=== PATIENT | female | born 1975 | race Caucasian/White ===

== ENCOUNTER 2019-04-01 10:42 | Emergency (ER) | payer SELFPAY ==
[~2019-04-01] VITALS: Ht 162.6 cm; Wt 91.6 kg
[2019-04-01] MEDS ORDERED: MECLIZINE HCL 12.5 MG TABLET. PO ONE (11:00)
[2019-04-01] MEDS ORDERED: IV NORMAL SALINE 1000ML BAG 1,000 ML IV ONE (11:00)
[2019-04-01 11:05] LABS: BASO # 0.1 x10^3/uL (0.0-0.2); BASO % 1 % (0-3); EOS # 0.2 x10^3/uL (0.0-0.7); EOS % 1 % (0-3); HEMATOCRIT 44.5 % (36.0-47.0); HEMOGLOBIN 15.6 g/dL (12.0-15.5); LYMPH # 3.6 x10^3/uL (1.0-4.8); LYMPH % 33 % (24-48); MEAN CORPUSCULAR HEMOGLOBIN 32 pg (25-35); MEAN CORPUSCULAR HGB CONC 35 g/dL (31-37); MEAN CORPUSCULAR VOLUME 91 fL (79-100); MONO # 0.7 x10^3/uL (0.0-1.1); MONO % 6 % (0-9); NEUT # 6.5 x10^3/uL (1.8-7.7); NEUT % 59 % (31-73); PLATELET COUNT 227 x10^3/uL (140-400); RED CELL DISTRIBUTION WIDTH 12.9 % (11.5-14.5)
--- NOTE | 2019-04-01 11:16 | RAD ---
PORTABLE CHEST 1V History: Dizziness for 2 weeks, palpitations Comparison: None. Findings: Single view of the chest is submitted. There is no infiltrate, pneumothorax, or effusion. The pericardial cardiac silhouette is within normal limits in size. There is likely emphysema. There is mild interstitial opacity of uncertain chronicity. Impression: 1. There is likely emphysema. There is mild interstitial opacity of uncertain chronicity. Electronically signed by: Milo Baker MD (04/01/2019 11:13 AM) [id number]
[2019-04-01 11:23] LABS: BARBITURATES NEG (NEG); BENZODIAZEPINES NEG (NEG); CANNABINOIDS NEG (NEG); COCAINE NEG (NEG); METHADONE NEG (NEG); OPIATES NEG (NEG); PHENCYCLIDINE NEG (NEG)
[2019-04-01 11:26] LABS: AMPHETAMINE/METHAMPHETAMINE NEG (NEG)
[2019-04-01 11:27] LABS: CALCIUM 9.2 mg/dL (8.5-10.1); CREATININE 0.7 mg/dL (0.6-1.0); GFR 91.3; POTASSIUM 4.1 mmol/L (3.5-5.1)
[2019-04-01 11:33] LABS: ALBUMIN 3.9 g/dL (3.4-5.0); MAGNESIUM 1.9 mg/dL (1.8-2.4); TOTAL BILIRUBIN 0.1 mg/dL (0.2-1.0); TOTAL PROTEIN 7.9 g/dL (6.4-8.2)
--- NOTE | 2019-04-01 11:50 | PHYS DOC ---
Past Medical History Past Medical History: Diabetes-Type II, Hypertension (MARCELINO BARNES APRN) Past Surgical History: Hysterectomy (MARCELINO BARNES APRN) Alcohol Use: None Drug Use: None (MARCELINO BARNES APRN) Adult General Chief Complaint Chief Complaint: DIZZY/LIGHT HEADED HPI HPI Patient is a 44 year old female with history of diabetes type 2, hypertension, smoking, who presents to the ED today complaining of dizziness, she states symptoms have been going on for 2 weeks, denies anything exacerbating or relieving her symptoms. Denies any chest pain, nausea, vomiting, she states she feels her heart is pounding out of her chest. She states she has been seen by her PCP several times for this symptoms in the last 2 weeks, she states her doctor did lab work including an echocardiogram as well as a chest x-ray which was negative. She states she feels the symptoms are not going away. She states at some point they treated her for an ear infection as well as removed wax from her ears which did not improve the symptoms. She states her doctor also thought her blood pressure was running high despite being on amlodipine 5 mg so they increased it to 10 mg but her symptoms did not improve. (MARCELINO BARNES APRN) Review of Systems Review of Systems Constitutional: Denies fever or chills [] Eyes: Denies change in visual acuity, redness, or eye pain [] HENT: Denies nasal congestion or sore throat [] Respiratory: Denies cough or shortness of breath [] Cardiovascular: Reports palpitations. No additional information not addressed in HPI [] GI: Denies abdominal pain, nausea, vomiting, bloody stools or diarrhea [] : Denies dysuria or hematuria [] Musculoskeletal: Denies back pain or joint pain [] Integument: Denies rash or skin lesions [] Neurologic: Reports dizziness. Denies headache, focal weakness or sensory changes [] All other systems were reviewed and found to be within normal limits, except as documented in this note. (MARCELINO BARNES APRN) Current Medications Current Medications Current Medications Medications (Trade) Dose Ordered Sig/Candice Start Time Stop Time Status Last Admin Dose Admin Meclizine HCl (Antivert) 25 mg 1X ONCE 04/01/19 11:00 04/01/19 11:04 DC 04/01/19 11:14 25 MG Sodium Chloride 1,000 ml @ 1,000 mls/hr 1X ONCE 04/01/19 11:00 04/01/19 12:00 DC 04/01/19 11:14 1,000 MLS/HR (BENNETT SCHWARTZ DO) Allergies Allergies Allergies Coded Allergies Type Severity Reaction Last Updated Verified Penicillins Allergy Unknown 04/01/19 Yes adhesive tape Allergy Unknown 04/01/19 Yes morphine Allergy Unknown 04/01/19 Yes (BENNETT SCHWARTZ DO) Physical Exam Physical Exam Constitutional: Well developed, well nourished, no acute distress, non-toxic appearance. [] HENT: Normocephalic, atraumatic, bilateral external ears normal, oropharynx mois t, no oral exudates, nose normal. [] Eyes: PERRLA, EOMI, conjunctiva normal, no discharge. [] Neck: Normal range of motion, no tenderness, supple, no stridor. [] Cardiovascular: Tachycardic, no murmur [] Lungs & Thorax: Bilateral breath sounds clear to auscultation [] Abdomen: Bowel sounds normal, soft, no tenderness, no masses, no pulsatile masses. [] Skin: Warm, dry, no erythema, no rash. [] Back: No tenderness, no CVA tenderness. [] Extremities: No tenderness, no cyanosis, no clubbing, ROM intact, no edema. [] Neurologic: Alert and oriented X 3, normal motor function, normal sensory function, no focal deficits noted. Cranial nerves II through XII intact Psychologic: Affect normal, judgement normal, mood normal. [] (MARCELINO BARNES APRN) Current Patient Data Vital Signs Vital Signs Date Time Temp Pulse Resp B/P (MAP) Pulse Ox O2 Delivery O2 Flow Rate FiO2 04/01/19 12:40 102 19 93 04/01/19 11:12 98.5 181/91 (121) Room Air 98.5 (BENNETT SCHWARTZ DO) Lab Values Laboratory Tests Test 04/01/19 10:52 04/01/19 10:55 04/01/19 11:07 Urine Opiates Screen Neg (NEG) Urine Methadone Screen Neg (NEG) Urine Barbiturates Neg (NEG) Urine Phencyclidine Screen Neg (NEG) Urine Amphetamine/Methamphetamine Neg (NEG) Urine Benzodiazepines Screen Neg (NEG) Urine Cocaine Screen Neg (NEG) Urine Cannabinoids Screen Neg (NEG) Urine Ethyl Alcohol Neg (NEG) White Blood Count 11.0 x10^3/uL (4.0-11.0) Red Blood Count 4.90 x10^6/uL (3.50-5.40) Hemoglobin 15.6 g/dL (12.0-15.5) H Hematocrit 44.5 % (36.0-47.0) Mean Corpuscular Volume 91 fL (79-100) Mean Corpuscular Hemoglobin 32 pg (25-35) Mean Corpuscular Hemoglobin Concent 35 g/dL (31-37) Red Cell Distribution Width 12.9 % (11.5-14.5) Platelet Count 227 x10^3/uL (140-400) Neutrophils (%) (Auto) 59 % (31-73) Lymphocytes (%) (Auto) 33 % (24-48) Monocytes (%) (Auto) 6 % (0-9) Eosinophils (%) (Auto) 1 % (0-3) Basophils (%) (Auto) 1 % (0-3) Neutrophils # (Auto) 6.5 x10^3/uL (1.8-7.7) Lymphocytes # (Auto) 3.6 x10^3/uL (1.0-4.8) Monocytes # (Auto) 0.7 x10^3/uL (0.0-1.1) Eosinophils # (Auto) 0.2 x10^3/uL (0.0-0.7) Basophils # (Auto) 0.1 x10^3/uL (0.0-0.2) D-Dimer (Nicky) 0.28 ug/mlFEU (0.00-0.50) Sodium Level 143 mmol/L (136-145) Potassium Level 4.1 mmol/L (3.5-5.1) Chloride Level 104 mmol/L (98-107) Carbon Dioxide Level 26 mmol/L (21-32) Anion Gap 13 (6-14) Blood Urea Nitrogen 11 mg/dL (7-20) Creatinine 0.7 mg/dL (0.6-1.0) Estimated GFR (Cockcroft-Gault) 91.3 BUN/Creatinine Ratio 16 (6-20) Glucose Level 135 mg/dL (70-99) H Calcium Level 9.2 mg/dL (8.5-10.1) Magnesium Level 1.9 mg/dL (1.8-2.4) Total Bilirubin 0.1 mg/dL (0.2-1.0) L Aspartate Amino Transferase (AST) 19 U/L (15-37) Alanine Aminotransferase (ALT) 28 U/L (14-59) Alkaline Phosphatase 43 U/L (46-116) L Creatine Kinase 100 U/L (26-192) Creatine Kinase MB (Mass) 0.7 ng/mL (0.0-3.6) Creatine Kinase MB Relative Index 0.7 % (0-4) Troponin I Quantitative < 0.017 ng/mL (0.000-0.055) II-Zfc-V-Type Natriuretic Peptide 23 pg/mL (0-124) Total Protein 7.9 g/dL (6.4-8.2) Albumin 3.9 g/dL (3.4-5.0) Albumin/Globulin Ratio 1.0 (1.0-1.7) Lipase 157 U/L (73-393) Thyroid Stimulating Hormone (TSH) 2.792 uIU/mL (0.358-3.74) POC Urine HCG, Qualitative Hcg negative (Negative) Laboratory Tests 04/01/19 10:55 Laboratory Tests 04/01/19 10:55 (BENNETT SCHWARTZ DO) EKG EKG 1048 Interpreted by sinus tachycardia HR 109 no STEMI[] (MARCELINO BARNES APRN) Radiology/Procedures Radiology/Procedures []PROCEDURE: PORTABLE CHEST 1V PORTABLE CHEST 1V History: Dizziness for 2 weeks, palpitations Comparison: None. Findings: Single view of the chest is submitted. There is no infiltrate, pneumothorax, or effusion. The pericardial cardiac silhouette is within normal limits in size. There is likely emphysema. There is mild interstitial opacity of uncertain chronicity. Impression: 1. There is likely emphysema. There is mild interstitial opacity of uncertain chronicity. Electronically signed by: Staci Aranda MD (04/01/2019 11:13 AM) [id number] DICTATED and SIGNED BY: STACI ARANDA MD DATE: 04/01/19 1113 PROCEDURE: CT HEAD WO CONTRAST EXAM: CT Head without IV contrast CLINICAL HISTORY: dizziness palpitations COMPARISON: None. TECHNIQUE: Routine CT of the head without contrast. Soft tissues and bone windows were reviewed. PQRS compliance statement - One or more of the following individualized dose reduction techniques were utilized for this study: 1. Automated exposure control 2. Adjustment of the mA and/or kV according to patient size 3. Use of iterative reconstruction technique FINDINGS: There is no evidence of hemorrhage, mass or extra-axial fluid collection. Ramos-white differentiation is maintained with no evidence of edema. There is no mass effect or shift of the intracranial structures. The ventricles, basilar cisterns and cortical sulci are normal in size and configuration for the patients stated age. The cerebellum and brainstem are unremarkable. Focal disruption of the right lamina papyracea consistent with orbital blowout fracture, age-indeterminate but likely chronic given lack of associated edema. Otherwise, the calvarium demonstrates no evidence of fracture or focal lesion. There is normal aeration of the visualized paranasal sinuses and mastoid air cells. The visualized portions of the orbits are normal. Focal subcutaneous soft tissue prominence overlying the high right parietal region containing fat, likely lipoma. IMPRESSION: 1. No evidence for acute intracranial process. 2. Focal subcutaneous soft tissue prominence overlying the high right parietal region containing fat, likely lipoma. Electronically signed by: Mario Shultz MD (04/01/2019 11:48 AM) [id number] DICTATED and SIGNED BY: MARIO SHULTZ MD DATE: 04/01/19 1148 (MARCELINO BARNES APRN) Course & Med Decision Making Course & Med Decision Making Pertinent Labs and Imaging studies reviewed. (See chart for details) This is a 44-year-old female patient who presents to the ED today complaining of dizziness for 2 weeks she has been seen by her PCP and had workup related to her symptoms including echocardiogram as well as labs, her amlodipine was increased from 5 mg to 10 mg with no improvement of her dizziness. She was advised to consider smoking cessation. Chest x-ray is negative for any acute findings. Hemoccult CT of the head is negative for any acute findings but noted for right parietal lipoma. CBC, d- dimer are negative, CMP is negative. Urine analysis is negative for infection. Stroke scale is negative. BP when i was in the room was 160s,/70s. Patient is no distress. She was given 1 L of IV fluid. She states she feels better. She was also given meclizine. She states her symptoms are completely gone right now. She'll be discharged with Meclizine. F/u with PCP next week. (MARCELINO BARNES APRN) Dragon Disclaimer Dragon Disclaimer This electronic medical record was generated, in whole or in part, using a voice recognition dictation system. (MARCELINO BARNES APRN) NIHSS Stroke Scale NIH Stroke Scale: NIH Stroke Scale Response (Comments) Value Level of Consciousness: 0 Alert/Responsive 0 LOC Questions: 0 Answers both correctly 0 LOC Commands: 0 Performs both tasks 0 Best Gaze: 0 Normal 0 Visual: 0 No visual loss 0 Facial Palsy: 0 Normal, symmetrical 0 Motor - Left Arm 0 No drift 0 Motor - Right Arm 0 No drift 0 Motor - Left Leg 0 No drift 0 Motor: Right Leg 0 No drift 0 Limb Ataxia: 0 Absent 0 Sensory: 0 No loss 0 Best Language: 0 Normal 0 Dysathria: 0 Normal 0 Extinction and Inattention: 0 Normal 0 Total 0 Departure Departure Impression: Primary Impression: Dizziness Additional Impression: Smoking addiction Disposition: HOME, SELF-CARE Condition: STABLE Referrals: UNKNOWN PCP NAME (PCP) STACI ARAGON MD follow up next week DAYNE DAVIS MD follow up next week Patient Instructions: Dizziness, Hoyg-mi-Cgal, Smoking Cessation Additional Instructions: You were evaluated in the emergency room for dizziness. We highly recommend you follow-up with your own primary care doctor as well as the neurologist provided next week Scripts Meclizine Hcl (MECLIZINE HCL) 25 Mg Tablet 1 TAB PO TID, #30 TAB Prov: MARCELINO BARNES APRN 04/01/19 Attending Signature Attending Signature I have reviewed the PA/DATA TECHNICAL LEAD's note and plan of care. I was available for consultation as needed during the patient's visit in the emergency department. I agree with the clinical impression, plan, and disposition. (BENNETT SCHWARTZ DO) Problem Qualifiers MARCELINO BARNES APRN Apr 01, 2019 11:50 BENNETT SCHAWRTZ DO Apr 01, 2019 17:22
[2019-04-01] MEDS ORDERED: MECL25TA3 PO (12:38)
[2019-04-01 12:40] VITALS: BP 140/70
--- NOTE | 2019-04-01 13:40 | EKG ---
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
== END 2019-04-01 12:52 | disposition home or self-care (01) ==
LOC: ER 10:42
DX: R42 Dizziness and giddiness (principal); F17.200 Nicotine dependence, unspecified, uncomplicated; E11.9 Type 2 diabetes mellitus without complications; I10 Essential (primary) hypertension; Z90.710 Acquired absence of both cervix and uterus; Z88.5 Allergy status to narcotic agent; Z88.8 Allergy status to other drugs, medicaments and biological substances; Z88.0 Allergy status to penicillin
CPT/HCPCS: 36415; 70450; 71045; 80053; 80307; 81025; 82553; 83690; 83735; 83880; 84443; 84484; 85025; 85379; 93005; 96360; 99285; J7030; J8597